=== PATIENT | male | born 1985 | race Caucasian/White ===

== ENCOUNTER 2017-12-23 09:58 | Emergency (ER) | payer MEDICARE, OTHER ==
[~2017-12-23 09:58] MED LIST: Z.0.NO CURRENT MEDS
[2017-12-23 10:08] VITALS: BP 134/60; PULSE 69; RESP 16; TEMP 97.4; O2SAT 99
[2017-12-23] MEDS ORDERED: SODIUM CHLOR 0.9% 1000 ML INJ 1,000 ML IV SCH (10:34)
[2017-12-23] MEDS ORDERED: MORPHINE SULFATE 4 MG/ML INJ IV PUSH ONE ×2 (10:45→14:30)
[2017-12-23] MEDS ORDERED: SODIUM CHLORIDE 0.9% FLUSH 10 ML FLUSH IV FLUSH PRN (10:45)
[2017-12-23] MEDS ORDERED: ONDANSETRON ODT 4 MG TAB PO ONE (10:45)
[2017-12-23 11:15] LABS: AUTOMATED NEUTROPHIL # 4.5 TH/MM3 (1.8-7.7); BASOPHIL % 0.7 % (0.0-2.0); EOSINOPHIL # 0.3 TH/MM3 (0-0.4); EOSINOPHIL % 3.5 % (0.0-4.0); HEMATOCRIT 44.7 % (39.0-51.0); HEMOGLOBIN 15.4 GM/DL (13.0-17.0); LYMPH % 26.6 % (9.0-44.0); MEAN CELL VOLUME 88.8 FL (80.0-100.0); MEAN CORPUSCULAR HEMOGLOBIN 30.7 PG (27.0-34.0); MEAN CORPUSCULAR HGB CONC 34.6 % (32.0-36.0); MEAN PLATELET VOLUME 9.1 FL (7.0-11.0); MONOCYTE # 0.7 TH/MM3 (0-0.9); NEUT % 60.2 % (16.0-70.0); PLATELET COUNT 216 TH/MM3 (150-450); RED BLOOD COUNT 5.03 MIL/MM3 (4.50-5.90); RED CELL DISTRIBUTION WIDTH 13.2 % (11.6-17.2); WHITE BLOOD COUNT 7.4 TH/MM3 (4.0-11.0)
[2017-12-23 11:25] LABS: PROTHROMBIN TIME - PATIENT 10.5 SEC (9.8-11.6)
[2017-12-23 11:38] LABS: ALBUMIN 3.9 GM/DL (3.4-5.0); ALT (GPT) 36 U/L (12-78); AST (GOT) 19 U/L (15-37); BICARBONATE 24.4 MEQ/L (21.0-32.0); BLOOD UREA NITROGEN 11 MG/DL (7-18); CALCIUM 8.9 MG/DL (8.5-10.1); CHLORIDE 107 MEQ/L (98-107); GLOMERULAR FILTRATION RATE 97 ML/MIN (>89); GLUCOSE,RANDOM 90 MG/DL (74-106); SODIUM (NA) 139 MEQ/L (136-145)
[2017-12-23 11:40] LABS: ALKALINE PHOSPHATASE 94 U/L (45-117); TOTAL BILIRUBIN ADULT 0.4 MG/DL (0.2-1.0); TOTAL PROTEIN 7.6 GM/DL (6.4-8.2)
[2017-12-23] MEDS ORDERED: IOHEXOL 350 MG/ML 10 ML VIAL (for RAD DIAG) IVCONTRAST ONE (11:41)
--- NOTE | 2017-12-23 14:13 | RADRPT ---
EXAM DATE: 12/23/2017 2:05 PM EDT AGE/SEX: 32 years / Male INDICATIONS: Umbilical hernia surgery Febuinocencio,today had sharp pain in umbilical area. CLINICAL DATA: This is the patient's initial encounter. Patient reports that signs and symptoms have been present for 1 day and indicates a pain score of 3/10. MEDICAL/SURGICAL HISTORY: None. Umbilical hernia repair. ORAL CONTRAST: No oral contrast ingested. RADIATION DOSE: 9.5 CTDI (mGy) COMPARISON: No prior [facility] exams available for comparison. TECHNIQUE: Multiple contiguous axial images were obtained through the abdomen and pelvis following b olus infusion of 85 ml Omnipaque 350 (iohexol) nonionic water-soluble contrast as a single exam dos e. No oral contrast ingested. Using automated exposure control and adjustment of the mA and/or kV ac cording to patient size, the radiation dose was kept as low as reasonably achievable to obtain optima l diagnostic quality images. FINDINGS: Lower Lungs: The visualized lower lungs are clear. Liver: The liver has a homogeneous density without space-occupying lesion. There is no dilation of th e biliary tree. Spleen: Homogeneous density without enlargement. Pancreas: Unremarkable without mass or calcification. Kidneys: Normal in size and shape. No evidence of mass or hydronephrosis. Adrenal Glands: Unremarkable. Aorta: The aorta and proximal iliac vessels are grossly unremarkable without aneurysmal dilation. Bowel/Mesentery: The bowel loops are grossly unremarkable. The cecum and sigmoid colon have a normal configuration. Normal appendix. Abdominal Wall: There is evidence of stranding in the umbilicus likely secondary to previous surgery . There is fat-containing periumbilical hernia just above the umbilicus. Retroperitoneum: No evidence of adenopathy in the retrocrural, para-aortic, or deep pelvic regions. Bladder: Contours are smooth. Reproductive Organs: No abnormal masses or calcifications seen. Inguinal: The inguinal region is unremarkable without evidence of adenopathy. Bony Structures: Unremarkable. CONCLUSION: 1. Supraumbilical ventral wall hernia containing fat. 2. There is stranding in the soft tissues of the umbilical region likely related to previous surgery . Electronically signed by: Darryl Cook MD 12/23/2017 2:12 PM EDT
--- NOTE | 2017-12-23 14:41 | PD ---
HPI Chief Complaint: GI Complaint Time Seen by Provider: 10:22 Travel History International Travel<30 days: No Contact w/Intl Traveler<30days: No Traveled to known affect area: No History of Present Illness HPI Patient is a 32-year-old male who comes in complaining of pain just above his umbilicus. He had an umbilical hernia repair in August done by Dr. Tobias, and says things have been improving since then. Today he bent over to do something when he felt a sudden severe pain. He he has not noticed any increased swelling to the area. He says the pain made him very nauseous, but he has not vomited. He said he had a bowel movement this morning that was normal. He says the pain has lessened since he got here. He did not take anything for pain prior to arrival. Severity is mild to moderate. PFSH Past Medical History Medical other: Yes (HERNIA ) Past Surgical History Abdominal Surgery: Yes (HERNIA REPAIR) Social History Alcohol Use: No Tobacco Use: Yes (ONE PACK PER DAY FOR 4 YEARS) Substance Use: No Allergies-Medications (Allergen,Severity, Reaction): Coded Allergies: No Known Allergies (Verified Allergy, Mild, 02/12/06) Reported Meds & Prescriptions Reported Meds & Active Scripts Active Reported No Current Meds (Miscellaneous Medication) Misc Review of Systems Except as stated in HPI: all other systems reviewed are Neg General / Constitutional: No: Fever, Chills HENT: No: Headaches, Lightheadedness Cardiovascular: No: Chest Pain or Discomfort Respiratory: No: Shortness of Breath Gastrointestinal: Positive: Abdominal Pain, No: Nausea, Vomiting Musculoskeletal: No: Myalgias, Edema Skin: No Rash, No Change in Pigmentation Neurologic: No: Weakness, Dizziness Physical Exam Narrative GENERAL: Awake and alert, in no acute distress. SKIN: Focused skin assessment warm/dry. No erythema or warmth to the abdomen. HEAD: Atraumatic. Normocephalic. EYES: Pupils equal and round. No scleral icterus. ENT: Mucous membranes pink and moist. NECK: Trachea midline. No JVD. CARDIOVASCULAR: Regular rate and rhythm. No murmur appreciated. RESPIRATORY: No accessory muscle use. Clear to auscultation. Breath sounds equal bilaterally. GASTROINTESTINAL: Abdomen soft, nondistended. Mild tenderness to palpation just above the umbilicus. No rebound or guarding. MUSCULOSKELETAL: No obvious deformities. No clubbing. No cyanosis. No edema. NEUROLOGICAL: Awake and alert. No obvious cranial nerve deficits. Motor grossly within normal limits. Normal speech. PSYCHIATRIC: Appropriate mood and affect; insight and judgment normal. Data Data Last Documented VS Vital Signs Date Time Temp Pulse Resp B/P (MAP) Pulse Ox O2 Delivery O2 Flow Rate FiO2 12/23/17 15:13 65 21 133/77 (95) 99 Room Air 12/23/17 10:08 97.4 Orders Orders Complete Blood Count With Diff (12/23/17 10:34) Comprehensive Metabolic Panel (12/23/17 10:34) Lipase (12/23/17 10:34) Lactic Acid (12/23/17 10:34) Prothrombin Time / Inr (Pt) (12/23/17 10:34) Act Partial Throm Time (Ptt) (12/23/17 10:34) Ct Abd/Pel W Iv Contrast(Rout) (12/23/17 10:34) Iv Access Insert/Monitor (12/23/17 10:34) Ecg Monitoring (12/23/17 10:34) Oximetry (12/23/17 10:34) Morphine Inj (Morphine Inj) (12/23/17 10:45) Sodium Chlor 0.9% 1000 Ml Inj (Ns 1000 M (12/23/17 10:34) Sodium Chloride 0.9% Flush (Ns Flush) (12/23/17 10:45) Ondansetron Odt (Zofran Odt) (12/23/17 10:45) Morphine Inj (Morphine Inj) (12/23/17 14:30) Oxycodone-Acetamin 5-325 Mg (Percocet (12/23/17 14:45) Labs Laboratory Tests Test 12/23/17 10:55 White Blood Count 7.4 TH/MM3 Red Blood Count 5.03 MIL/MM3 Hemoglobin 15.4 GM/DL Hematocrit 44.7 % Mean Corpuscular Volume 88.8 FL Mean Corpuscular Hemoglobin 30.7 PG Mean Corpuscular Hemoglobin Concent 34.6 % Red Cell Distribution Width 13.2 % Platelet Count 216 TH/MM3 Mean Platelet Volume 9.1 FL Neutrophils (%) (Auto) 60.2 % Lymphocytes (%) (Auto) 26.6 % Monocytes (%) (Auto) 9.0 % Eosinophils (%) (Auto) 3.5 % Basophils (%) (Auto) 0.7 % Neutrophils # (Auto) 4.5 TH/MM3 Lymphocytes # (Auto) 2.0 TH/MM3 Monocytes # (Auto) 0.7 TH/MM3 Eosinophils # (Auto) 0.3 TH/MM3 Basophils # (Auto) 0.0 TH/MM3 CBC Comment DIFF FINAL Differential Comment Prothrombin Time 10.5 SEC Prothromb Time International Ratio 1.0 RATIO Activated Partial Thromboplast Time 24.6 SEC Blood Urea Nitrogen 11 MG/DL Creatinine 0.90 MG/DL Random Glucose 90 MG/DL Total Protein 7.6 GM/DL Albumin 3.9 GM/DL Calcium Level 8.9 MG/DL Alkaline Phosphatase 94 U/L Aspartate Amino Transf (AST/SGOT) 19 U/L Alanine Aminotransferase (ALT/SGPT) 36 U/L Total Bilirubin 0.4 MG/DL Sodium Level 139 MEQ/L Potassium Level 4.3 MEQ/L Chloride Level 107 MEQ/L Carbon Dioxide Level 24.4 MEQ/L Anion Gap 8 MEQ/L Estimat Glomerular Filtration Rate 97 ML/MIN Lactic Acid Level 1.5 mmol/L Lipase 98 U/L [facility] Medical Decision Making Medical Screen Exam Complete: Yes Emergency Medical Condition: Yes Medical Record Reviewed: Yes Differential Diagnosis Umbilical hernia versus ventral hernia versus muscle strain versus gastritis Narrative Course Patient is a 32-year-old male who comes in complaining of abdominal pain after bending down today. Exam shows minimal tenderness just above the umbilicus. IV established, labs sent. Labs show no acute abnormalities, lactic acid is within normal limits. CT abdomen and pelvis performed shows a ventral hernia containing fat. Last 24 hours Impressions Abdomen/Pelvis CT 12/23/17 1034 Signed Impressions: CONCLUSION: 1. Supraumbilical ventral wall hernia containing fat. 2. There is stranding in the soft tissues of the umbilical region likely relat ed to previous surgery. I spoke with Dr. Portillo who is covering for Dr. Tobias, who feels the patient can go home with pain control. He advised 24 hours of narcotic pain control with ibuprofen and ice applied to the area. He advised complete "couch to rest" and follow-up with Dr. Tobias in the office. Patient advised of this. He is given pain medicine here. Given a prescription for Percocet. Advised to apply ice and use ibuprofen. Advised to rest and call the office in the morning. Advised return anytime for any worsening symptoms. Diagnosis Primary Impression: Ventral hernia Qualified Codes: K43.9 - Ventral hernia without obstruction or gangrene Patient Instructions: General Instructions, Incisional Hernia (DC) Additional Instructions: Call Dr. Tobias's office tomorrow morning to set up an appointment. Apply ice to the area and take ibuprofen as needed for pain. He can take Percocet for severe pain. Return to the ED as needed for any worsening symptoms. Rest and do not do anything strenuous in the next few days. Scripts Oxycodone-Acetaminophen (Percocet) 5-325 mg Tab 1 TAB PO Q6H Y for PAIN, #12 TAB 0 Refills Prov: Shari Palmer MD 12/23/17 Disposition: 01 DISCHARGE HOME Condition: Stable Shari Palmer MD December 23, 2017 14:41
[2017-12-23] MEDS ORDERED: oxyCODONE/ACETAMINOPHEN 5 MG/325 MG TAB PO ONE (14:45)
[2017-12-23 15:13] VITALS: BP 133/77; PULSE 65; RESP 21; O2SAT 99
[2017-12-23] MEDS ORDERED: PERC5TAB12 PO (15:28)
[2017-12-23 16:22] VITALS: BP 123/58
== END 2017-12-23 16:25 | disposition home or self-care (01) ==
LOC: NEPC 09:58
DX: K43.9 Ventral hernia without obstruction or gangrene (principal); F17.200 Nicotine dependence, unspecified, uncomplicated
CPT/HCPCS: 74177; 80053; 83605; 83690; 85025; 85610; 85730; 96361; 96374; 99284; J2270; J7030; Q9967

== ENCOUNTER → 2017-12-25 | Day surgery (SDC) | payer OTHER ==
[~2017-12-25] MED LIST changes: +GLYCOPYRROLATE 0.2 MG/ML VIAL IV ONE; +KETOROLAC TROMETHAMINE 30 MG/ML (IVP) VIAL IV PUSH ONE; +LACTATED RINGER'S 1000 ML INJ 1,000 ML ONE; +MIDAZOLAM HCL 2 MG/2 ML VIAL ONE; +MORPHINE SULFATE 4 MG/ML INJ ONE; +NEOSTIGMINE 3 MG/3 ML SYR IV PUSH ONE; +ONDANSETRON HCL 4 MG/2 ML VIAL IV PUSH ONE; +PERC5TAB12 PO; +PROPOFOL 200 MG/20 ML AMP IV ONE; +ROCURONIUM INJ 50 MG/5 ML VIAL ONE; +VANCOMYCIN HCL 1000 MG VIAL ONE; +ceFAZolin INJ 1,000 MG VIAL ONE; +oxyCODONE/ACETAMINOPHEN 5 MG/325 MG TAB ONE
--- NOTE | 2017-12-25 10:10 | TN ---
cc: Stepan Tobias MD DATE OF SURGERY: 12/25/2017 PREOPERATIVE DIAGNOSES: 1. Recurrent supraumbilical hernia. 2. Obesity. POSTOPERATIVE DIAGNOSES: 1. Recurrent supraumbilical hernia. 2. Obesity. 3. Hernia above previous repair. PROCEDURE PERFORMED: Laparoscopic supraumbilical hernia repair with Roxton-Arcenio DualMesh 10 x 15 x 1. SURGEON: Stepan Tobias MD INDEPENDENT SALES REPRESENTATIVE: BRENT Caldera ANESTHESIA: General and LMA. COMPLICATIONS: None. INDICATIONS FOR PROCEDURE: Mr. Garcia is a pleasant 32-year-old gentleman who several months ago underwent repair of a large umbilical hernia. Postoperatively, he did well until 3 days ago when he was bending down and working on some equipment. When he stood up, he felt a pop and severe pain in his supraumbilical region. He went to the emergency room where CT scan showed a supraumbilical hernia with omentum. There was no evidence of strangulation. He was referred back to the office and was seen in the office yesterday. In the office, he was examined and he was tender in the supraumbilical region, but he did have some what appeared to be reducible fat. He was advised to undergo immediate repair. Risks and benefit of repair was discussed with him. Because of his obesity and his recent repair, I recommended a laparoscopic repair to fully evaluate the abdominal wall. Risks and benefits were reviewed with him and his in the office and they were agreeable. PROCEDURE DETAILS: The patient was identified, brought to the operating room, placed supine on the operating table. After adequate general anesthesia was achieved with LMA, the anterior abdomen was prepped and draped in standard surgical fashion. A 0.25% Marcaine was injected in the skin and subcutaneous tissue in the right subcostal region. Right subcostal incision was made. Dissection was carried down through subcutaneous tissue to the anterior abdominal fascia. Anterior abdominal wall fascia was incised sharply. Abdominal wall musculature was then spread along the course of its fibers. The peritoneum was then grasped, elevated, and divided sharply. A finger was then placed in the peritoneal cavity without difficulty. Blunt balloon trocar was inserted, and the abdomen was insufflated to 15 mmHg using CO2 gas. Next, a 30-degree laparoscope was inserted. Immediately, we noted the hernia, which was above the previous repair in the supraumbilical region. A 5 mm port was then placed in the right middle quadrant under direct vision after anesthetizing the skin and subcutaneous tissue with 0.25% Marcaine. Omentum was grasped and easily came out of the defect without any bleeding or tension. At the patient's previous repair, there was a large amount of preperitoneal fat, which was protruding down to the abdomen. I elected to go ahead and resect this so it would not push away on the new repair. Electrocautery Bovie was used to resect the preperitoneal fat just inferior to the new hernia. This was grasped and brought out through the 10 mm port site. Next, attention was directed to mobilization of the falciform ligament. Falciform ligament was mobilized with electrocautery Bovie in order to provide a generous spacing from where the hernia was. Hernia defect was then measured out, it was about 2 cm in diameter. We therefore elected a 10 x 15 x 1 piece of Roxton-Arcenio DualMesh. This was cut down to about a 10 x 12 oval. Four suture points were identified on the abdominal wall several centimeters away from the defect. Roxton CV-0 suture was then placed on the superior, inferior, medial, and lateral borders of the mesh. The mesh was then introduced into the abdominal cavity. Using the 4 suture points, the mesh was pulled up to the abdominal wall using the Roxton needle passer to grasp the Roxton CV-0 sutures. The mesh was appropriately tensioned in all directions. There was generous mesh overlap in all directions away from the fascial defect. Mesh was then secured up to the abdominal wall and photographed. Next, the mesh was secured circumferentially using the tacking device. Mesh was then photographed in place. Again, there was generous overlap in all directions from the fascial defect. 0.25% Marcaine was injected around at all the suture sites a second time. The omentum was then placed over the small bowel and completely covered it so that the mesh did not encounter the bowel in any way. The abdomen was then carefully desufflated. All ports were removed. The peritoneum was then closed with 0 Vicryl and the anterior abdominal fascia was also closed with 0 Vicryl. Skin was closed with 4-0 Vicryl. The patient tolerated the procedure well, was awakened and brought to the recovery room in stable condition. Please note the [facility] first aid teacher was medically necessary due to the complexity of the procedure. She has specialized surgical skills as well as extensive knowledge of my surgical technique. Her presence in the OR expedites the procedure. Stepan Russell Tobias MD MWLyn/BETSY , 09:47 AM , 10:09 AM KYM
== END | disposition home or self-care (01) ==
LOC: ESDC 06:51
PROVIDERS: ATTEND Surgery Trauma Surgery
DX: K43.2 Incisional hernia without obstruction or gangrene (principal); E66.9 Obesity, unspecified
CPT/HCPCS: 00752; 49656; C1727; C1781; J0690; J1885; J2250; J2270; J2405; J2710; J3010; J3370; J7120